=== PATIENT | female | born 1965 ===

== ENCOUNTER 2019-03-05 13:07 | Emergency (ER) | payer BC, OTHER ==
[2019-03-05 14:10] VITALS: BP 134/76
--- NOTE | 2019-03-05 15:24 | ED ---
Abdominal Pain/Female - HPI Summary HPI Summary: 53 yr old with the complaint of left flank pain for over a week, and now left side abdominal pain, with distention of abdomen, and nausea, taste of bile in mouth and also difficulty moving the bowels. The patient has had prior c section and also FLAQUITO/USO. Her pain is 6/10. No other complaints. - History of Current Complaint Chief Complaint: UCBackPain Stated Complaint: LOW BACK/ L ABD PAIN Time Seen by Provider: 03/05/19 14:54 Hx Last Menstrual Period: hysterectomy Pain Intensity: 6 Allergies/Adverse Reactions: Allergies Allergy/AdvReac Type Severity Reaction Status Date / Time No Known Allergies Allergy Verified 03/05/19 14:10 Home Medications: Home Medications Cyclobenzaprine TAB* [Flexeril 10 MG TAB*] 1 tab PO BID 03/05/19 [History Confirmed 03/05/19] Ibuprofen TAB* [Advil TAB*] 3 tab PO ONCE 03/05/19 [History Confirmed 03/05/19] Naproxen TAB* [Naprosyn 250 mg TAB*] 1 tab PO TID 03/05/19 [History Confirmed ] PMH/Surg Hx/FS Hx/Imm Hx - Surgical History Surgery Procedure, Year, and Place: hysterectomy. L oophrectomy. bladder lift. x2 Infectious Disease History: No Infectious Disease History: Denies: Traveled Outside the [place] in Last 30 Days - Family History Known Family History: Positive: Other - breast and colon caner - Social History Alcohol Use: None Substance Use Type: Reports: None Smoking Status (MU): Never Smoked Tobacco Review of Systems Constitutional: Negative Positive: Abdominal Pain All Other Systems Reviewed And Are Negative: Yes Physical Exam Triage Information Reviewed: Yes Vital Signs On Initial Exam: Initial Vitals Temp Pulse Resp BP Pulse Ox 98.6 F 85 16 134/76 100 03/05/19 14:01 03/05/19 14:01 03/05/19 14:01 03/05/19 14:01 03/05/19 14:01 Vital Signs Reviewed: Yes Appearance: Positive: Well-Appearing, No Pain Distress Skin: Positive: Warm, Skin Color Reflects Adequate Perfusion Head/Face: Positive: Normal Head/Face Inspection Eyes: Positive: EOMI, AYO ENT: Positive: Normal ENT inspection Neck: Positive: Nontender Respiratory/Lung Sounds: Positive: Clear to Auscultation, Breath Sounds Present Cardiovascular: Positive: RRR. Negative: Murmur Abdomen Description: Positive: Distended, Other: - left lower quadrant tenderness. Negative: CVA Tenderness (R), CVA Tenderness (L) Musculoskeletal: Positive: Strength/ROM Intact Neurological: Positive: Sensory/Motor Intact, Alert, Oriented to Person Place, Time, CN Intact II-III, Normal Gait, Speech Normal Psychiatric: Positive: Normal - Maria Esther Coma Scale Best Eye Response: 4 - Spontaneous Best Motor Response: 6 - Obeys Commands Best Verbal Response: 5 - Oriented Coma Scale Total: 15 Diagnostics - Vital Signs Vital Signs Temp Pulse Resp BP Pulse Ox 03/05/19 14:01 98.6 F 85 16 134/76 100 - Laboratory Lab Results: Lab Results 03/05/19 Range/Units 14:55 POC Urine Color Yellow POC Urine Clarity Clear POC Urine pH 6.0 (5-9) POC Ur Specif [place] 1.020 (1.010-1.030) POC Urine Protein Negative (Negative) POC Ur Glucose (UA) Negative (Negative) POC Urine Ketones Negative (Negative) POC Urine Blood Negative (Negative) POC Urine Nitrite Negative (Negative) POC Urine Bilirubin Negative (Negative) POC Urine Urobilinogen 0.2 (Negative) POC U Leukocyte Esteras Negative (Negative) Lab Statement: Any lab studies that have been ordered have been reviewed, and results considered in the medical decision making process. Abdominal Pain Fem Course/Dx - Course Course Of Treatment: 53 yr old with left sided abdominal and flank pain. She does not want an ambulance. She will go to the ER with her sister. - Diagnoses Provider Diagnoses: Left lower quadrant abdominal pain Discharge ED - Sign-Out/Discharge Documenting (check all that apply): Patient Departure All imaging exams completed and their final reports reviewed: No Studies - Discharge Plan Condition: Good Disposition: HOME-RECOMMEND TO ED Patient Education Materials: Acute Abdominal Pain (ED) Referrals: Renan Gan PA [Primary Care Provider] - Additional Instructions: GO TO THE ER FOR FURTHER WORK UP OF YOUR ABDOMINAL PAIN - Billing Disposition and Condition Condition: GOOD Disposition: Home-Recommend to ED
== END 2019-03-05 15:23 | disposition home health service (06) ==
LOC: UCCORT 13:07
DX: R10.32 Left lower quadrant pain (principal); Z90.710 Acquired absence of both cervix and uterus; Z90.721 Acquired absence of ovaries, unilateral
CPT/HCPCS: 81003; 99212; G0463

== ENCOUNTER 2019-04-29 08:36 | Emergency (ER) | payer BC ==
[2019-04-29 08:59] VITALS: BP 126/67
--- NOTE | 2019-04-29 10:12 | UC ---
Ear Complaint HPI - HPI Summary HPI Summary: 53-year-old woman comes in with a chief complaint of left ear pain. It's been going on for more than 5 days. It's getting worse. Now she is having a headache around her eyes. Denies any sore throat or fever Or runny nose. She has taken Benadryl without any relief. She took acetaminophen last night which helped decrease the pain. She is not a swimmer. - History of Current Complaint Chief Complaint: UCEar Stated Complaint: LEFT EAR PAIN,MAYA Time Seen by Provider: 04/29/19 09:58 Hx Last Menstrual Period: hysterectomy Pain Intensity: 6 - Allergies/Home Medications Allergies/Adverse Reactions: Allergies Allergy/AdvReac Type Severity Reaction Status Date / Time No Known Allergies Allergy Verified 04/29/19 08:48 Home Medications: Home Medications Acetaminophen/Diphenhydramine [Acetaminophen-Diphenhyd 500-25] 1 each PO PRN [History] diPHENhydraMINE PO* [Benadryl PO 25 MG TAB*] 25 mg PO BEDTIME PRN 04/29/19 [ History Confirmed 04/29/19] PMH/Surg Hx/FS Hx/Imm Hx Previously Healthy: Yes - Surgical History Surgical History: Yes Surgery Procedure, Year, and Place: hysterectomy. L oophrectomy. bladder lift. x2 - Family History Known Family History: Positive: Other - breast and colon caner - Social History Alcohol Use: None Substance Use Type: None Smoking Status (MU): Never Smoked Tobacco Review of Systems All Other Systems Reviewed And Are Negative: Yes Constitutional: Positive: Negative Skin: Positive: Negative Eyes: Positive: Negative ENT: Positive: Other - SEE HPI Respiratory: Positive: Negative Cardiovascular: Positive: Negative Gastrointestinal: Positive: Negative Motor: Positive: Negative Neurovascular: Positive: Negative Musculoskeletal: Positive: Negative Neurological: Positive: Headache Psychological: Positive: Negative Is Patient Immunocompromised?: No Physical Exam Triage Information Reviewed: Yes Appearance: No Pain Distress, Well-Nourished, Ill-Appearing - MILD Vital Signs: Initial Vital Signs Temp 97.8 F 04/29/19 08:51 Pulse 82 04/29/19 08:51 Resp 16 04/29/19 08:51 BP 126/67 04/29/19 08:51 Pulse Ox 100 04/29/19 08:51 Vital Signs Reviewed: Yes Eye Exam: Normal Eyes: Positive: Conjunctiva Clear ENT: Positive: Pharynx normal, TM bulging - LEFT, TM dull - LEFT Neck: Positive: Supple Respiratory: Positive: Lungs clear, Normal breath sounds, No respiratory distress Cardiovascular: Positive: RRR Musculoskeletal: Positive: Strength Intact, ROM Intact Neurological: Positive: Alert, Muscle Tone Normal Psychological: Positive: Age Appropriate Behavior Skin Exam: Normal Ear Complaint Course/Dx - Course Course Of Treatment: DISCUSSED VIRAL VERSES BACTERIAL INFECTIONS AND THE ROLE OF ANTIBIOTICS. THE PATIENT PREFERS TO BE ON ANTIBIOTICS AT THIS TIME. We will treat with antihistamines and Flonase and antibiotics. Patient prefers to follow-up with ENT here in [place] therefore, patient given both [facility] and Dr. Amezcua ENT information. - Differential Dx/Diagnosis Provider Diagnosis: Left serous otitis media Discharge ED - Sign-Out/Discharge Documenting (check all that apply): Patient Departure All imaging exams completed and their final reports reviewed: No Studies - Discharge Plan Condition: Stable Disposition: HOME Prescriptions: Amoxicillin PO (*) [Amoxicillin 875 MG (*)] 875 mg PO BID #20 tab Fluticasone NASAL SPRAY 50MCG* [Flonase NASAL SPRAY 50MCG*] 2 spray BOTH NARES DAILY #1 btl Levocetirizine Dihydrochloride [Xyzal] 5 mg PO DAILY #15 tablet Patient Education Materials: Serous Otitis Media (ED) Referrals: Renan Gan PA [Primary Care Provider] - Brown Amezcua MD [Medical Doctor] - Kevin Pelletier MD [Medical Doctor] - Additional Instructions: FOLLOW UP WITH ENT. GET REEVALUATED SOONER IF NOT IMPROVING OR WORSE OR ANY QUESTIONS OR CONCERNS. - Billing Disposition and Condition Condition: STABLE Disposition: Home
== END 2019-04-29 10:18 | disposition home or self-care (01) ==
LOC: UCCORT 08:36
DX: H65.92 Unspecified nonsuppurative otitis media, left ear (principal); R51 Headache
CPT/HCPCS: 99212; G0463

== ENCOUNTER 2019-05-16 23:47 | Emergency (ER) | payer BC ==
[2019-05-17] MEDS ORDERED: traMADol TAB* 50 MG PO ONE (02:20)
--- NOTE | 2019-05-17 02:21 | ED ---
Throat Pain/Nasal Congestion - HPI Summary HPI Summary: 53-year-old female comes into the emergency department today with a chief complaint of ear pain and fullness and congestion which she has been suffering from 4 weeks. She has been seen by an ENT doctor 3 times and given various medications for symptom relief. She is scheduled for an MRI later this month for evaluation. She recently had a CT of the sinuses done which showed no evidence of infection. She is in the emergency department today as she states she cannot stand the headache or ear fullness anymore. She denies fever, chest pain, shortness breath, abdominal pain, pain with urination. - History of Current Complaint Chief Complaint: EDEarPain Time Seen by Provider: 05/17/19 01:46 Hx Obtained From: Patient, Family/Varitypist - pt sister Onset/Duration: Gradual Onset, Lasting Weeks Severity: Moderate Associated Signs And Symptoms: Positive: Sinus Discomfort, Nasal Discharge Cough: None - Allergies/Home Medications Allergies/Adverse Reactions: Allergies Allergy/AdvReac Type Severity Reaction Status Date / Time No Known Allergies Allergy Verified 05/16/19 23:54 PMH/Surg Hx/FS Hx/Imm Hx - Surgical History Surgery Procedure, Year, and Place: hysterectomy. L oophrectomy. bladder lift. x2 Infectious Disease History: No Infectious Disease History: Denies: Traveled Outside the [place] in Last 30 Days - Family History Known Family History: Positive: Other - breast and colon caner - Social History Alcohol Use: None Substance Use Type: Reports: None Smoking Status (MU): Never Smoked Tobacco Review of Systems Constitutional: Negative Eyes: Negative Positive: Ear Ache Cardiovascular: Negative Respiratory: Negative Gastrointestinal: Negative Genitourinary: Negative Musculoskeletal: Negative Skin: Negative Neurological: Negative Psychological: Normal All Other Systems Reviewed And Are Negative: Yes Physical Exam Triage Information Reviewed: Yes Vital Signs On Initial Exam: Initial Vitals Temp Pulse Resp BP Pulse Ox 99.6 F 92 16 161/89 98 05/16/19 23:50 05/16/19 23:50 05/16/19 23:50 05/16/19 23:50 05/16/19 23:50 Vital Signs Reviewed: Yes Appearance: Positive: Well-Appearing, No Pain Distress, Well-Nourished Skin: Positive: Warm, Skin Color Reflects Adequate Perfusion Eyes: Positive: EOMI, AYO, Conjunctiva Clear ENT: Positive: Hearing grossly normal, Pharynx normal, TMs normal, Uvula midline. Negative: Pharyngeal erythema, Nasal congestion, Muffled voice, Hoarse voice, Dental tenderness, Sinus tenderness Neck: Positive: Nontender Respiratory/Lung Sounds: Positive: Clear to Auscultation, Breath Sounds Present Cardiovascular: Positive: RRR, S1, S2 Abdomen Description: Positive: Nontender, Soft Bowel Sounds: Positive: Present Musculoskeletal: Positive: Strength/ROM Intact Neurological: Positive: Sensory/Motor Intact, Alert, Oriented to Person Place, Time, Normal Gait, Speech Normal Psychiatric: Positive: Normal AVPU Assessment: Alert Procedures - Sedation Patient Received Moderate/Deep Sedation with Procedure: No Diagnostics - Vital Signs Vital Signs Temp Pulse Resp BP Pulse Ox 05/16/19 23:50 99.6 F 92 16 161/89 98 - Laboratory Lab Statement: Any lab studies that have been ordered have been reviewed, and results considered in the medical decision making process. EENT Course/Dx - Course Course Of Treatment: Patient was evaluated in the emergency department for sinus discomfort. The patient was seen and examined her vitals are stable and she is afebrile. After examination is no evidence of infection or other pathology requiring intervention at this time. Patient was told to follow-up with her ears nose and throat doctor who she has been seeing for further evaluation and management of her symptoms. She was told to return to the emergency department immediately if she develops any new or worsening symptoms. - Differential Diagnoses Differential Diagnoses: Other - Sinusitis, otitis media, headache - Diagnoses Provider Diagnoses: Sinus pressure Discharge ED - Sign-Out/Discharge Documenting (check all that apply): Patient Departure - Discharge Plan Condition: Stable Disposition: HOME Patient Education Materials: Earache (ED) Forms: *Work Release Referrals: Renan Gan PA [Primary Care Provider] - 2 Days Kevin Pelletier MD [Medical Doctor] - 1 Day Additional Instructions: You were seen in the emergency department today for earache and sinus pressure. This is a chronic problem. Please follow-up with the ears nose and throat doctor on Sunday for further evaluation and management of your symptoms. There appeared to be no acute pathology requiring intervention at this time. Please continue to take and nasal steroids and ibuprofen and Mucinex as needed for symptom relief. Please return to the emergency department immediately if you develop any new or worsening symptoms. - Billing Disposition and Condition Condition: STABLE Disposition: Home
[2019-05-17 03:14] VITALS: BP 144/89
== END 2019-05-17 03:15 | disposition home or self-care (01) ==
LOC: ED 23:47
DX: J34.89 Other specified disorders of nose and nasal sinuses (principal); R51 Headache; H93.8X9 Other specified disorders of ear, unspecified ear
CPT/HCPCS: 99282; A9270-GY